=== PATIENT | male | born 1935 | race Caucasian/White ===

== ENCOUNTER 2017-03-27 18:04 | Emergency (ER) | payer MEDICARE, OTHER ==
[2017-03-27] MEDS ORDERED: Sodium Chloride 0.9% 10 ML Syringe FLUSH PRN (18:06)
[2017-03-27] MEDS ORDERED: Ketorolac 30 MG/ML SDV IVPUSH ONE (18:10)
--- NOTE | 2017-03-27 18:36 | EDM.PDOC ---
ED HPI GENERAL MEDICAL PROBLEM - General Stated Complaint: PAIN LEFT HIP AND LEG AREA Time Seen by Provider: 03/27/17 18:10 Source of Information: Reports: Patient, Family History Limitations: Reports: Physical Impairment - History of Present Illness INITIAL COMMENTS - FREE TEXT/NARRATIVE: 82 y.o.w.m with h/o B cell lymphoma, Brain Tumor (Typ?), came with family to the ed due to acute onset of pain at his LLQ of his abdomen. No trauma. Pt has a h/o diverticulitis. S/P right nephrectomy. No N/V/D. 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 BP 149/66 pulse 55 Temp 36.6 Pulse ox 99% on RA. Onset: Today Onset Date: 03/27/17 Onset Time: 16:00 Duration: Hour(s):, Getting Worse Location: Reports: Abdomen, Pelvis Quality: Reports: Ache, Burning, Dull, Pressure, Stabbing, Throbbing Severity: Severe Improves with: Reports: Rest Worsens with: Reports: Movement Context: Reports: Other (H/O diverticulitis, no trauma.) Associated Symptoms: Reports: No Other Symptoms left abdomen Pain Score (Numeric/FACES): 9 - Related Data Allergies Allergy/AdvReac Type Severity Reaction Status Date / Time avocado Allergy Diarrhea Verified 08/23/14 09:48 nifedipine [From Procardia] Allergy Hypertensio Verified 08/23/14 09:48 n Home Meds: Home Meds Levothyroxine 75 mcg PO DAILY 08/15/14 [History] Dexamethasone [Dexamethasone] 4 mg PO Q8HR 03/27/17 [History] Metoprolol Succinate [Toprol XL] 12.5 mg PO DAILY 03/27/17 [History] Social & Family History - Tobacco Use Smoking Status *Q: Never Smoker Second Hand Smoke Exposure: No - Alcohol Use Days Per Week of Alcohol Use: 0 - Recreational Drug Use Recreational Drug Use: No ED ROS GENERAL - Review of Systems Review Of Systems: See Below Constitutional: Reports: No Symptoms HEENT: Reports: No Symptoms Respiratory: Reports: No Symptoms Cardiovascular: Reports: No Symptoms Endocrine: Reports: No Symptoms GI/Abdominal: Reports: Abdominal Pain : Reports: No Symptoms Musculoskeletal: Reports: No Symptoms Skin: Reports: No Symptoms Neurological: Reports: No Symptoms Psychiatric: Reports: No Symptoms Hematologic/Lymphatic: Reports: No Symptoms Immunologic: Reports: No Symptoms ED EXAM, GI/ABD - Physical Exam Exam: See Below Exam Limited By: Physical Impairment General Appearance: Alert, WD/WN, Moderate Distress Eyes: Bilateral: Normal Appearance Ears: Normal External Exam Nose: Normal Inspection Throat/Mouth: Normal Inspection Head: Atraumatic, Normocephalic Neck: Normal Inspection, Supple, Non-Tender Respiratory/Chest: No Respiratory Distress, Lungs Clear (poor insp effort) Cardiovascular: Normal Peripheral Pulses, Regular Rate, Rhythm GI/Abdominal Exam: Distended, Guarding, Rigid, Tender, Abnormal Bowel Sounds (Male) Exam: No Hernia Rectal (Males) Exam: Deferred Back Exam: Normal Inspection, Full Range of Motion Extremities: Normal Inspection, Normal Range of Motion, Non-Tender, No Pedal Edema, Normal Capillary Refill Neurological: Alert, Oriented, CN II-XII Intact, Normal Cognition, Abnormal Gait (due to abd. pain) Psychiatric: Normal Affect, Normal Mood Skin Exam: Warm, Dry, Intact, Normal Color, No Rash Lymphatic: No Adenopathy Course - Vital Signs Text/Narrative:: 82 y.o.w.m with h/o B cell lymphoma, Brain Tumor (Typ?), came with family to the ed due to acute onset of pain at his LLQ of his abdomen. No trauma. Pt has a h/o diverticulitis. S/P right nephrectomy. No N/V/D. 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 BP 149/66 pulse 55 Temp 36.6 Pulse ox 99% on RA. PE: WNWD W M with an acute abdomen. Labs: WBC 25.8 K Lactic acid 2.3 Imaging: Perforated viscus, Diverticulitis Neoplasma? Impression: Brain Tumor, B cell lymphoma. S/P right Nephrectomy due to Cancer. Perforated colon/viscus DDX: Abscess, neoplasma, diverticulitis Tx: Toradol, Zosyn, Flagyl, Dilaudid, NS Reexam: Stabilized/pain improved BP 105/67 pulse 51 (on betablockers) temp 36.1 9.38 pm Consultation: Dr. Gordillo, Surgeon: [facility] to [place] 9.42 pm Consultation: Dr. Ribera, Surgeon, [facility]: Accepted for further care Plan: Transfer to [place] by EMS. Family was informed and agreed for the transfer for further evaluation. Last Recorded V/S: Last Vital Signs Temp 36.1 C 03/27/17 18:10 Pulse 61 03/27/17 22:10 Resp 16 03/27/17 22:10 BP 103/79 03/27/17 22:10 Pulse Ox 99 03/27/17 22:10 - Orders/Labs/Meds Orders: Active Orders 24 hr Category Date Time Status Abdomen Pelvis w Cont [CT] Stat Exams 03/27/17 18:49 Taken CULTURE BLOOD [BC] Urgent Lab 03/27/17 18:40 Received CULTURE BLOOD [BC] Urgent Lab 03/27/17 18:45 Received Blood Culture x2 Reflex Set [OM.PC] Urgent Oth 03/27/17 18:33 Ordered Peripheral IV Insertion Adult [OM.PC] Routine Oth 03/27/17 18:06 Ordered Labs: Laboratory Tests 03/27/17 03/27/17 03/27/17 Range/Units 18:20 18:20 18:20 WBC 25.8 H (4.5-12.0) X10-3/uL RBC 6.28 H (4.30-5.75) x10(6)uL Hgb 16.9 H (11.5-15.5) g/dL Hct 52.5 H (30.0-51.3) % MCV 83.6 (80-96) fL MCH 26.9 L (27.7-33.6) pg MCHC 32.2 (32.2-35.4) g/dL RDW 14.3 (11.5-15.5) % Plt Count 235 (125-369) X10(3)uL MPV 9.8 (7.4-10.4) fL Add Manual Diff Yes Neutrophils % (Manual) 82 (46-82) % Band Neutrophils % 5 (0-6) % Lymphocytes % (Manual) 10 L (13-37) % Monocytes % (Manual) 2 L (4-12) % Basophils % (Manual) 1 (0-2) % PT 11.2 H (8.7-11.1) INR 1.11 (0.89-1.13) Sodium 137 (135-145) mmol/L Potassium 4.3 (3.5-5.3) mmol/L Chloride 100 (100-110) mmol/L Carbon Dioxide 31 (21-32) mmol/L BUN 31 H (7-18) mg/dL Creatinine 1.5 H (0.70-1.30) mg/dL Est Cr Clr Drug Dosing TNP Estimated GFR (MDRD) 45 L (>60) BUN/Creatinine Ratio 20.7 H (9-20) Glucose 166 H (80-116) mg/dL Lactic Acid (0.4-2.2) mmol/L Calcium 8.3 L (8.6-10.2) mg/dL Total Bilirubin (0.1-1.3) mg/dL Direct Bilirubin (0.10-0.20) mg/dL AST (5-25) IU/L ALT (12-36) U/L Alkaline Phosphatase (56-112) IU/L NT-Pro-B Natriuret Pep (<=450) pg/mL Total Protein (6.0-8.0) g/dL Albumin (3.2-4.6) g/dL Amylase (25-115) U/L Urine Color (YELLOW) Urine Appearance (CLEAR) Urine pH (5.0-6.5) Ur Specific [place] (1.010-1.025) Urine Protein (NEGATIVE) mg/dL Urine Glucose (UA) (NEGATIVE) mg/dL Urine Ketones (NEGATIVE) mg/dL Urine Occult Blood (NEGATIVE) Urine Nitrite (NEGATIVE) Urine Bilirubin (NEGATIVE) Urine Urobilinogen (NEGATIVE) mg/dL Ur Leukocyte Esterase (NEGATIVE) Urine RBC (0) Urine WBC (0) Ur Squamous Epith Cells (NS,R,O) Urine Bacteria (NS) 03/27/17 03/27/17 03/27/17 Range/Units 18:20 18:20 18:20 WBC (4.5-12.0) X10-3/uL RBC (4.30-5.75) x10(6)uL Hgb (11.5-15.5) g/dL Hct (30.0-51.3) % MCV (80-96) fL MCH (27.7-33.6) pg MCHC (32.2-35.4) g/dL RDW (11.5-15.5) % Plt Count (125-369) X10(3)uL MPV (7.4-10.4) fL Add Manual Diff Neutrophils % (Manual) (46-82) % Band Neutrophils % (0-6) % Lymphocytes % (Manual) (13-37) % Monocytes % (Manual) (4-12) % Basophils % (Manual) (0-2) % PT (8.7-11.1) INR (0.89-1.13) Sodium (135-145) mmol/L Potassium (3.5-5.3) mmol/L Chloride (100-110) mmol/L Carbon Dioxide (21-32) mmol/L BUN (7-18) mg/dL Creatinine (0.70-1.30) mg/dL Est Cr Clr Drug Dosing Estimated GFR (MDRD) (>60) BUN/Creatinine Ratio (9-20) Glucose (80-116) mg/dL Lactic Acid 2.3 H (0.4-2.2) mmol/L Calcium (8.6-10.2) mg/dL Total Bilirubin 0.5 (0.1-1.3) mg/dL Direct Bilirubin 0.12 (0.10-0.20) mg/dL AST 21 (5-25) IU/L ALT 66 H (12-36) U/L Alkaline Phosphatase 60 (56-112) IU/L NT-Pro-B Natriuret Pep 830 H (<=450) pg/mL Total Protein 6.7 (6.0-8.0) g/dL Albumin 3.1 L (3.2-4.6) g/dL Amylase 92 (25-115) U/L Urine Color (YELLOW) Urine Appearance (CLEAR) Urine pH (5.0-6.5) Ur Specific [place] (1.010-1.025) Urine Protein (NEGATIVE) mg/dL Urine Glucose (UA) (NEGATIVE) mg/dL Urine Ketones (NEGATIVE) mg/dL Urine Occult Blood (NEGATIVE) Urine Nitrite (NEGATIVE) Urine Bilirubin (NEGATIVE) Urine Urobilinogen (NEGATIVE) mg/dL Ur Leukocyte Esterase (NEGATIVE) Urine RBC (0) Urine WBC (0) Ur Squamous Epith Cells (NS,R,O) Urine Bacteria (NS) 03/27/17 Range/Units 19:00 WBC (4.5-12.0) X10-3/uL RBC (4.30-5.75) x10(6)uL Hgb (11.5-15.5) g/dL Hct (30.0-51.3) % MCV (80-96) fL MCH (27.7-33.6) pg MCHC (32.2-35.4) g/dL RDW (11.5-15.5) % Plt Count (125-369) X10(3)uL MPV (7.4-10.4) fL Add Manual Diff Neutrophils % (Manual) (46-82) % Band Neutrophils % (0-6) % Lymphocytes % (Manual) (13-37) % Monocytes % (Manual) (4-12) % Basophils % (Manual) (0-2) % PT (8.7-11.1) INR (0.89-1.13) Sodium (135-145) mmol/L Potassium (3.5-5.3) mmol/L Chloride (100-110) mmol/L Carbon Dioxide (21-32) mmol/L BUN (7-18) mg/dL Creatinine (0.70-1.30) mg/dL Est Cr Clr Drug Dosing Estimated GFR (MDRD) (>60) BUN/Creatinine Ratio (9-20) Glucose (80-116) mg/dL Lactic Acid (0.4-2.2) mmol/L Calcium (8.6-10.2) mg/dL Total Bilirubin (0.1-1.3) mg/dL Direct Bilirubin (0.10-0.20) mg/dL AST (5-25) IU/L ALT (12-36) U/L Alkaline Phosphatase (56-112) IU/L NT-Pro-B Natriuret Pep (<=450) pg/mL Total Protein (6.0-8.0) g/dL Albumin (3.2-4.6) g/dL Amylase (25-115) U/L Urine Color Yellow (YELLOW) Urine Appearance Clear (CLEAR) Urine pH 7.0 H (5.0-6.5) Ur Specific [place] 1.015 (1.010-1.025) Urine Protein Negative (NEGATIVE) mg/dL Urine Glucose (UA) 250 H (NEGATIVE) mg/dL Urine Ketones Negative (NEGATIVE) mg/dL Urine Occult Blood Negative (NEGATIVE) Urine Nitrite Negative (NEGATIVE) Urine Bilirubin Negative (NEGATIVE) Urine Urobilinogen 1 H (NEGATIVE) mg/dL Ur Leukocyte Esterase Negative (NEGATIVE) Urine RBC Not seen (0) Urine WBC 0-5 (0) Ur Squamous Epith Cells Few H (NS,R,O) Urine Bacteria Few H (NS) Meds: Medications Discontinued Medications Generic Name Dose Route Start Last Admin Trade Name Freq PRN Reason Stop Dose Admin Diatrizoate Meglum/Diatrizoate Sod 30 ml 03/27/17 20:08 03/27/17 20:12 Gastrografin 37% PO 03/27/17 20:09 30 ml . DIRECTED ONE Administration Hydromorphone HCl 0.5 mg 03/27/17 20:43 03/27/17 20:50 Dilaudid IVPUSH 03/27/17 20:44 0.5 mg ONETIME STA Administration Sodium Chloride 1,000 mls @ 125 mls/hr 03/27/17 18:45 03/27/17 19:00 Normal Saline IV 125 mls/hr ASDIRECTED MICHAEL Administration Piperacillin Sod/Tazobactam 50 mls @ 100 mls/hr 03/27/17 20:44 03/27/17 21:01 Sod 3.375 gm/ Sodium Chloride IV 03/27/17 21:13 100 mls/hr ONETIME STA Administration Metronidazole 500 mg/ Premix 100 mls @ 100 mls/hr 03/27/17 20:59 03/27/17 21: 27 IV 03/27/17 21:58 100 mls/hr ONETIME ONE Administration Iopamidol 75 ml 03/27/17 19:21 03/27/17 20:06 Isovue-370 (76%) IV 03/27/17 19:22 75 ml ONETIME ONE Administration Ketorolac Tromethamine 15 mg 03/27/17 18:10 03/27/17 18:17 Toradol IVPUSH 03/27/17 18:11 15 mg ONETIME ONE Administration Sodium Chloride 10 ml 03/27/17 18:06 03/27/17 18:10 Saline Flush FLUSH 10 ml ASDIRECTED PRN Administration Keep Vein Open Departure - Departure Time of Disposition: 21:57 Disposition: DC/Tfer to Critical Access 66 Condition: Fair Clinical Impression: Perforated abdominal viscus Diverticulitis large intestine Qualifiers: Diverticulitis bleeding: without bleeding Diverticulitis complication: with perforation Qualified Code(s): K57.20 - Diverticulitis of large intestine with perforation and abscess without bleeding - Discharge Information Referrals: Yifan Ruiz MD [Primary Care Provider] - Forms: ED Department Discharge - My Orders Last 24 Hours: My Active Orders 03/27/17 18:06 Peripheral IV Insertion Adult [OM.PC] Routine 03/27/17 18:33 Blood Culture x2 Reflex Set [OM.PC] Urgent 03/27/17 18:40 CULTURE BLOOD [BC] Urgent 03/27/17 18:45 CULTURE BLOOD [BC] Urgent 03/27/17 18:49 Abdomen Pelvis w Cont [CT] Stat - Assessment/Plan Last 24 Hours: My Active Orders 03/27/17 18:06 Peripheral IV Insertion Adult [OM.PC] Routine 03/27/17 18:33 Blood Culture x2 Reflex Set [OM.PC] Urgent 03/27/17 18:40 CULTURE BLOOD [BC] Urgent 03/27/17 18:45 CULTURE BLOOD [BC] Urgent 03/27/17 18:49 Abdomen Pelvis w Cont [CT] Stat
[2017-03-27] MEDS ORDERED: Sodium Chloride 0.9% 1,000 ML IV SCH (18:45)
[2017-03-27] MEDS ORDERED: Iopamidol 755 Mg/ML 75 ML Bottle IV ONE (19:21)
[2017-03-27] MEDS ORDERED: Diatrizoate Meglumine/Diatrizoate Sodium 37% 30 ML Bottle PO ONE (20:08)
[2017-03-27] MEDS ORDERED: HYDROmorphone 2 MG/ML SDV IVPUSH STA (20:43)
[2017-03-27] MEDS ORDERED: Piperacillin/Tazobactam 3.375 GM in Sodium Chloride 0.9% 50 ML IV STA (20:44)
[2017-03-27] MEDS ORDERED: metroNIDAZOLE/Normal Saline 500 MG in Premix Bag 1 BAG IV ONE (20:59)
[2017-03-27 22:35] VITALS: BP 103/79
== END 2017-03-27 22:20 | disposition critical access hospital (66) ==
LOC: FB.ED 18:04
DX: K57.20 Diverticulitis of large intestine with perforation and abscess without bleeding (principal); C71.9 Malignant neoplasm of brain, unspecified; C85.10 Unspecified B-cell lymphoma, unspecified site; Z90.5 Acquired absence of kidney; Z79.899 Other long term (current) drug therapy; Z88.8 Allergy status to other drugs, medicaments and biological substances; Z91.018 Allergy to other foods
CPT/HCPCS: 36415; 74177; 80048; 80076; 81001; 82150; 83605; 83880; 85025; 85610; 87040; 96361; 96365; 96367; 96375; 99285; A9270; J1170; J1885; J2543; J7040; J7050; Q9967; 99284

== ENCOUNTER 2017-04-06 11:34 | Inpatient (IN) | payer MEDICARE, OTHER ==
[2017-04-06] MEDS ORDERED: Acetaminophen/oxyCODONE 325-5 MG Tab PO PRN (14:44)
[2017-04-06] MEDS ORDERED: Menthol/Methyl Salicylate 85 GM Tube TOP PRN (14:46)
[2017-04-06] MEDS ORDERED: Polyvinyl Alcohol 1.4% Ophth Soln 15 ML Bottle EYEBOTH PRN (14:46)
[2017-04-06] MEDS ORDERED: Benzocaine/Cetylpyridinium/Menthol Lozenge MUCMEM PRN (14:46)
[2017-04-06] MEDS ORDERED: guaiFENesin 100 MG/5 ML Soln 5 ML UD Cup PO PRN (14:46)
[2017-04-06] MEDS ORDERED: Sodium Chloride 0.65% Nasal Spray 45 ML Bottle NAS PRN (14:46)
[2017-04-06] MEDS ORDERED: Docusate Sodium 100 MG Cap PO PRN (14:46)
[2017-04-06] MEDS ORDERED: Zolpidem 5 MG Tab PO PRN (14:46)
--- NOTE | 2017-04-06 14:59 | PCM.HP ---
H&P History of Present Illness - General Date of Service: 04/06/17 Admit Problem/Dx: Admission Diagnosis/Problem Admission Diagnosis/Problem Wound Source of Information: Patient, Old Records History Limitations: Reports: No Limitations - History of Present Illness Initial Comments - Free Text/Narative: Patient is a pleasant 82-year-old male who comes to us for swing bed status after he was admitted to the surgical team as [facility] under the care of Dr. Nhung michael M.D. on 03/27/2017 at the time he was experiencing severe left lower quadrant pain. Early in the morning on 03/28/2017 he underwent exploratory laparotomy and was found to have perforated left descending colon secondary to acute diverticulitis requiring left hemicolectomy, colostomy creation, Baltazar procedure, mobilization splenic flexure. Other complicating factors include known lymphoma to the brain recently diagnosed being seen at the [facility] and had one radiation dose treatment on 04/01/2017. He is being tapered down from his dexamethasone which he is on to prevent swelling of the brain. This will be carried out over a 3 week course. Postoperatively he now has a new left upper quadrant colostomy along with vertical midline abdominal wound incision closing by secondary intention. He is requiring wound care management, continued ostomy teaching, physical therapy occupational therapy for strengthening secondary to generalized deconditioning and poor nutrition status procedure. He is optimistic and does plan to go home once medically and physically able. His daughter and are in the room with him as I interview. They at this time have no concerns. He would like to drink more water. He denies headache, vision change, neck pain shoulder jaw chest or back pain. No cough or wheezing. No shortness of breath. Only minimal abdominal discomfort and no pain with wound cares. His ostomy is working well. He does feel as though he has some gas in the abdomen but this is nonpainful. He has no difficulty urinating. He does note some lower extremity edema which is just since his procedure. Otherwise no history of it in past. He denies any leg pain at rest or with activity. Currently using a walker for ambulation. His primary care physician is Dr. Joseph M.D. at [facility] and [place]. - Related Data Allergies/Adverse Reactions: Allergies Allergy/AdvReac Type Severity Reaction Status Date / Time avocado Allergy Diarrhea Verified 08/23/14 09:48 nifedipine [From Procardia] Allergy Hypertensio Verified 08/23/14 09:48 n Home Medications: Home Meds Levothyroxine 75 mcg PO DAILY@0600 08/15/14 [History] Dexamethasone [Dexamethasone] 4 mg PO BID 03/27/17 [History] Metoprolol Succinate [Toprol XL] 12.5 mg PO DAILY 03/27/17 [History] Dronabinol [Marinol] 2.5 mg PO BIDAC 04/06/17 [History] Famotidine [Acid Daycare Provider] 10 mg PO BID 04/06/17 [History] oxyCODONE HCl/Acetaminophen [oxyCODONE-Acetaminophen 5-325] 1 tab PO Q4H PRN 01/12 [History] Past Medical History Other HEENT History: Dentures Cardiovascular History: Reports: Hypertension, Other (See Below) Other Cardiovascular History: Diastolic heart murmur Respiratory History: Reports: Intubation, Previous (2018 for colostomy-no complications. Also for removal of Right kidney several years ago secondary to cancer-no complication.) Gastrointestinal History: Reports: Cholelithiasis Other Gastrointestinal History: Colostomy Genitourinary History: Reports: Chronic Renal Insuffiency. Denies: Dialysis Other Genitourinary History: Only has 1 kidney is functioning at roughly 45%. No history of needing dialysis her diuretics. Musculoskeletal History: Reports: None Neurological History: Reports: Other (See Below) Psychiatric History: Reports: None Endocrine/Metabolic History: Reports: Hypothyroidism Hematologic History: Denies: Anesthesia Reaction, Bleeding Disorder Immunologic History: Reports: None Oncologic (Cancer) History: Reports: Basal Cell Carcinoma, Lymphoma, Renal, Other (See Below) Other Oncologic History: recent diagnose of brain tumor-lymphoma Dermatologic History: Reports: None - Infectious Disease History Infectious Disease History: Reports: None - Past Surgical History Head Surgeries/Procedures: Reports: None Cardiovascular Surgical History: Reports: None Respiratory Surgical History: Reports: None GI Surgical History: Reports: Colon ( left hemicolectomy), Colostomy Male Surgical History: Reports: Nephrectomy Endocrine Surgical History: Reports: None Neurological Surgical History: Reports: None Musculoskeletal Surgical History: Reports: None Oncologic Surgical History: Reports: Other (See Below) (nephrectomy) Dermatological Surgical History: Reports: None Social & Family History - Tobacco Use Smoking Status *Q: Never Smoker Second Hand Smoke Exposure: No - Alcohol Use Days Per Week of Alcohol Use: 0 - Recreational Drug Use Recreational Drug Use: No - Living Situation & Occupation Living situation: Reports: , with Spouse Occupation: Retired (Lives independently in his own home.) H&P Review of Systems - Review of Systems: Review Of Systems: ROS reveals no pertinent complaints other than HPI. Exam - Exam Exam: See Below - Exam General: Alert, Oriented, Cooperative. No: Mild Distress HEENT: PERRLA, Conjunctiva Clear, Mucosa Moist & [place], Posterior Pharynx Clear. No: Scleral Icterus Neck: Supple, Trachea Midline. No: Lymphadenopathy, JVD, Thyromegaly Lungs: Clear to Auscultation, Normal Respiratory Effort Cardiovascular: Regular Rate, Regular Rhythm, Normal S1, Normal S2, Diastolic Murmur (2/) GI/Abdominal Exam: Soft, Distended, Tender (As expected along the midline incision.), Other (He has a vertical midline open surgical wound substernal to suprapubic. Healthy-appearing. Closing by secondary intent with wet to dry dressings using Kerlix daily. He also has a healthy-appearing ostomy to the left mid quadrant of the abdomen pink with bag containing liquid round stools and air. No evidence of skin breakdown or leakage. Nontender to palpation along dressing.). No: Guarding, Rigid, Rebound (Male) Exam: No: Suprapubic Fullness Rectal (Males) Exam: Deferred Back Exam: Normal Inspection Extremities: Other (He has trace to 1+ bilateral pedal edema up to the mid perrin. Symmetrical. No erythema or warmth. Negative Homans. Sensation and perfusion intact.) Skin: Wound Neurological: Strength Equal Bilateral, Normal Speech. No: Focal Deficit Neuro Extensive - Mental Status: Oriented x3, Normal Cognition, Memory Intact Psychiatric: Normal Affect, Normal Mood *Q Meaningful Use (ADM) - VTE *Q VTE Criteria *Q: - Stroke *Q Stroke Criteria *Q: - AMI *Q AMI Criteria *Q: - Problem List (1) Delayed physical recovery SNOMED Code(s): 617532443 ICD Code: [id number] - Status: Acute Current Visit: Yes (2) Encounter for surgical wound dressing change SNOMED Code(s): 004370344 ICD Code: Z48.01 - ENCOUNTER FOR CHANGE OR REMOVAL OF SURGICAL WOUND DRESSING Status: Acute Current Visit: Yes (3) S/P colectomy SNOMED Code(s): 960140144, 987784569 ICD Code: Z90.49 - ACQUIRED ABSENCE OF OTHER SPECIFIED PARTS OF DIGESTIVE TRACT Status: Acute Current Visit: Yes (4) Colostomy in place SNOMED Code(s): 014748362 ICD Code: Z93.3 - COLOSTOMY STATUS Status: Acute Current Visit: Yes (5) Status post Baltazar procedure SNOMED Code(s): 431074282 ICD Code: Z93.3 - COLOSTOMY STATUS Status: Acute Current Visit: Yes (6) Single kidney SNOMED Code(s): 731894456 ICD Code: Z90.5 - ACQUIRED ABSENCE OF KIDNEY Status: Chronic Current Visit: Yes (7) Essential hypertension SNOMED Code(s): 20952048 ICD Code: I10 - ESSENTIAL (PRIMARY) HYPERTENSION Status: Chronic Current Visit: Yes (8) Hypothyroidism (acquired) SNOMED Code(s): 551191788 ICD Code: E03.9 - HYPOTHYROIDISM, UNSPECIFIED Status: Chronic Current Visit: Yes (9) WOOL CLEANER lymphoma SNOMED Code(s): 195120954 ICD Code: C85.89 - OTH TYPES OF NON-HODG LYMPH, EXTRNOD AND SOLID ORGAN SITES Status: Acute Current Visit: Yes Problem Details: Brain-diagnosed February 2017 (10) Dyspepsia due to dysmotility SNOMED Code(s): 4066408 ICD Code: K30 - FUNCTIONAL DYSPEPSIA Status: Acute Current Visit: Yes Problem List Initiated/Reviewed/Updated: Yes Orders Last 24hrs: Active Orders 24 hr Category Date Time Status Admission Status [Patient Status] [ADT] Routine ADT 04/06/17 13:00 Active Activity as Tolerated [RC] .Routine Care 04/06/17 14:08 Active Ambulate [RC] ASDIRECTED Care 04/06/17 14:08 Active Height and Weight [RC] WEEKLY Care 04/06/17 14:46 Ordered May Shower [RC] ASDIRECTED Care 04/06/17 14:08 Active Notify Provider Vital Signs [RC] ASDIRECTED Care 04/06/17 14:46 Ordered Oxygen Therapy [RC] PRN Care 04/06/17 14:46 Ordered VTE/DVT Education [RC] Per Unit Routine Care 04/06/17 14:46 Ordered Vital Signs [RC] PER UNIT ROUTINE Care 04/06/17 14:46 Ordered Wound Care [RC] DAILY Care 04/06/17 16:00 Active Consult to Test Driver [CONS] Routine Cons 04/06/17 14:46 Ordered OT Evaluation and Treatment [CONS] Routine Cons 04/06/17 14:08 Active PT Evaluation and Treatment [CONS] Routine Cons 04/06/17 14:08 Active Regular Diet [DIET] Diet 04/06/17 Dinner Active Acetaminophen/oxyCODONE [Percocet 325-5 MG] Med 04/06/17 14:44 Ordered 1 tab PO Q4H PRN Benzocaine/Cetylpyrd/Menthol [Cepacol Sore Throat] Med 04/06/17 14:46 Ordered 1 lozenge MUCMEM ASDIRECTED PRN Carboxymethylcellulose Sodium [Refresh Tears 0.5%] Med 04/06/17 14:46 Ordered 1 ml EYEBOTH ASDIRECTED PRN Dexamethasone Med 04/06/17 21:00 Ordered 4 mg PO BID Docusate Sodium [Colace] Med 04/06/17 14:46 Ordered 100 mg PO BID PRN Dronabinol [Marinol] Med 04/06/17 17:30 Ordered 2.5 mg PO BIDAC Famotidine [Pepcid] Med 04/06/17 21:00 Ordered 10 mg PO BID Levothyroxine Med 04/07/17 06:00 Ordered 75 mcg PO DAILY@0600 Menthol/Methyl Salicylate [Icy Hot Cream] Med 04/06/17 14:46 Ordered 85 gm TOP BID PRN Metoprolol Succinate [Toprol XL] Med 04/07/17 09:00 Ordered 12.5 mg PO DAILY Sodium Chloride 0.65% [Praesel Nasal [place]] Med 04/06/17 14:46 Ordered 1 ml STACIE BID PRN Zolpidem [Ambien] Med 04/06/17 14:46 Ordered 5 mg PO BEDTIME PRN guaiFENesin [Robitussin] Med 04/06/17 14:46 Ordered 100 mg PO Q4H PRN Lifting Restrictions [OM.PC] Routine Oth 04/06/17 14:08 Ordered Patient May [OM.PC] Click to Edit Oth 04/06/17 14:46 Ordered Resuscitation Status Routine Resus Stat 04/06/17 14:08 Ordered Medication Orders Artificial Tears (Refresh Tears 0.5%) 1 ml EYEBOTH ASDIRECTED PRN PRN Reason: Dry Eyes Benzocaine/Menthol (Cepacol Sore Throat) 1 lozenge MUCMEM ASDIRECTED PRN PRN Reason: Sore Throat Dexamethasone (Dexamethasone) 4 mg PO BID MICHAEL Docusate Sodium (Colace) 100 mg PO BID PRN PRN Reason: Constipation Famotidine (Pepcid) 10 mg PO BID MICHAEL Guaifenesin (Robitussin) 100 mg PO Q4H PRN PRN Reason: Cough Levothyroxine Sodium (Levothyroxine) 75 mcg PO DAILY@0600 MICHAEL Methyl Salicylate (Icy Hot Cream) 85 gm TOP BID PRN PRN Reason: Discomfort Metoprolol Succinate (Toprol Xl) 12.5 mg PO DAILY [facility] Non-Formulary Medication (Dronabinol [Marinol]) 2.5 mg PO BIDAC MICHAEL Oxycodone/Acetaminophen (Percocet 325-5 Mg) 1 tab PO Q4H PRN PRN Reason: Pain (moderate 4-6) Sodium Chloride (Praesel Nasal [place]) 1 ml STACIE BID PRN PRN Reason: Nasal Congestion Zolpidem Tartrate (Ambien) 5 mg PO BEDTIME PRN PRN Reason: Sleep Assessment/Plan Comment:: Patient is appropriate for swing bed for continued PT OT due to deconditioning, half-way for wound care management, and ostomy cares along with teaching the patient and on how to continue this month able to discharge to home. We 'll continue to work on nutrition and any additional medical needs that may be required. All family are in agreement with the above plan of care.
[2017-04-06] MEDS: Dronabinol 2.5 MG Cap PO SCH (17:38)
[2017-04-06] MEDS: Dexamethasone 4 MG Tab PO SCH (20:40)
[2017-04-06] MEDS: Famotidine 10 MG Tab PO SCH (20:41)
[2017-04-06] MEDS ORDERED: Dexamethasone 4 MG Tab PO SCH (21:00)
[2017-04-07] MEDS: Levothyroxine 75 MCG Tab PO SCH (06:41)
[2017-04-07] MEDS: Dronabinol 2.5 MG Cap PO SCH ×2 (07:50→17:18)
[2017-04-07] MEDS: Metoprolol Succinate 25 MG Tab.ER PO SCH (09:07)
[2017-04-07] MEDS: Dexamethasone 4 MG Tab PO SCH ×2 (09:09→20:35)
[2017-04-07] MEDS: Famotidine 10 MG Tab PO SCH ×2 (09:09→20:34)
[2017-04-08] MEDS: Levothyroxine 75 MCG Tab PO SCH (06:03)
[2017-04-08] MEDS: Dronabinol 2.5 MG Cap PO SCH ×2 (07:18→17:22)
[2017-04-08] MEDS: Metoprolol Succinate 25 MG Tab.ER PO SCH (11:18)
[2017-04-08] MEDS: Famotidine 10 MG Tab PO SCH ×2 (11:18→20:40)
[2017-04-08] MEDS: Dexamethasone 4 MG Tab PO SCH ×2 (11:19→20:40)
--- NOTE | 2017-04-08 15:24 | PCM.PN ---
- General Info Date of Service: 04/08/17 Admission Dx/Problem (Free Text): Patient is an 82-year-old gentleman currently on swing bed day #3 admitted on 12/2017 after being hospitalized in [place] on 03/28/2017 day of surgery for left hemicolectomy secondary to perforation of the left colon. He was hospitalized in [place] for 10 days for IV antibiotic therapy and postoperative care. He is doing very well today. He's eating well. Good ostomy output. He was discharged from physical therapy and occupational therapy because he is meeting goal. He is still working with wound care and learning ostomy care. At the case conference today the plan is for him to likely discharge on the next week, Tuesday. 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 This was treated and he had recurrence early part of 2016 with a left posterior leg lesion. The leg lesion had initially been treated as a Lyme's erythema migrans and then thought to be perhaps a cellulitis. Ultimately was found to be a recurrent lymphoma. In February 2017 he started to develop vision problems with double vision and headaches and was found to have brain metastases with a lesion in the brain. This was treated with stereotactic radiation, 1 treatment and went very well. The patient was started on dexamethasone and had almost complete resolution of his symptoms. Unfortunately, he developed a perforated left colon with a peritonitis and ultimately required emergency surgery for this as above. Past medical history also includes: #1 GERD #2 TIA in the past #3 hyperlipidemia not treated due to age. #4 hypertension. #5 hypothyroidism. He is a nonsmoker, rare alcohol user and lives with his at home. Functional Status: Reports: Pain Controlled, Tolerating Diet, Ambulating - Patient Data Vitals - Most Recent: Last Vital Signs Temp 36.8 C 04/08/17 07:25 Pulse 65 04/08/17 11:18 Resp 18 04/08/17 07:25 BP 113/58 L 04/08/17 11:18 Pulse Ox 99 04/08/17 07:25 Weight - Most Recent: 64.41 kg I&O - Last 24 Hours: Intake & Output 04/08/17 04/08/17 04/08/17 06:59 14:59 22:59 Output Total 200 Balance -200 Med Orders - Current: Current Medications Artificial Tears (Liquitears 1.4% Ophth Soln) 0 ml EYEBOTH ASDIRECTED PRN PRN Reason: Dry Eyes Benzocaine/Menthol (Cepacol Sore Throat) 1 lozenge MUCMEM ASDIRECTED PRN PRN Reason: Sore Throat Dexamethasone (Dexamethasone) 4 mg PO BID [facility] Stop: 04/13/17 21:01 Last Admin: 04/08/17 11:19 Dose: 4 mg Dexamethasone (Dexamethasone) 4 mg PO DAILY [facility] Stop: 04/21/17 09:01 Dexamethasone (Dexamethasone) 2 mg PO DAILY [facility] Stop: 04/29/17 09:01 Docusate Sodium (Colace) 100 mg PO BID PRN PRN Reason: Constipation Dronabinol (Marinol) 2.5 mg PO BIDAC [facility] Last Admin: 04/08/17 07:18 Dose: 2.5 mg Famotidine (Pepcid) 10 mg PO BID [facility] Last Admin: 04/08/17 11:18 Dose: 10 mg Guaifenesin (Robitussin) 100 mg PO Q4H PRN PRN Reason: Cough Levothyroxine Sodium (Levothyroxine) 75 mcg PO DAILY@0600 [facility] Last Admin: 04/08/17 06:03 Dose: 75 mcg Methyl Salicylate (Icy Hot Cream) 0 gm TOP BID PRN PRN Reason: Discomfort Metoprolol Succinate (Toprol Xl) 12.5 mg PO DAILY [facility] Last Admin: 04/08/17 11:18 Dose: 12.5 mg Oxycodone/Acetaminophen (Percocet 325-5 Mg) 1 tab PO Q4H PRN PRN Reason: Pain (moderate 4-6) Sodium Chloride ([place] Nasal [place]) 0 ml STACIE BID PRN PRN Reason: Nasal Congestion Zolpidem Tartrate (Ambien) 5 mg PO BEDTIME PRN PRN Reason: Sleep Discontinued Medications Dexamethasone (Dexamethasone) 4 mg PO BID [facility] - Exam General: Alert, Oriented, Cooperative, No Acute Distress HEENT: Pupils Equal, Pupils Reactive Neck: Supple Lungs: Clear to Auscultation, Normal Respiratory Effort Cardiovascular: Regular Rate, Regular Rhythm, No Murmurs GI/Abdominal Exam: Normal Bowel Sounds, Soft (Large ventral incisional site dressed with no surrounding redness.) Extremities: Normal Inspection, No Pedal Edema Skin: Warm, Dry Wound/Incisions: Healing Well Psy/Mental Status: Alert, Normal Affect, Normal Mood - Problem List & Annotations (1) Delayed physical recovery SNOMED Code(s): 474897809 Code(s): FZS4189 - Status: Acute Current Visit: Yes Annotation/Comment :: Patient making good progress. We'll continue to ambulate in the hallway and work with nursing staff for teaching on wound care and ostomy care. (2) Colostomy in place SNOMED Code(s): 005436617 Code(s): Z93.3 - COLOSTOMY STATUS Status: Acute Current Visit: Yes Annotation/Comment:: Output is good without to much fluid loss. Now taking oral intake. Continue to monitor. (3) SALESPERSON SHOES lymphoma SNOMED Code(s): 276913688 Code(s): C85.89 - OTH TYPES OF NON-HODG LYMPH, EXTRNOD AND SOLID ORGAN SITES Status: Acute Current Visit: Yes Annotation/Comment:: Patient has an appointment in April with radiation oncology. Will continue to follow as an outpatient. Currently tapering dexamethasone. All neurologic symptoms have resolved. (4) S/P colectomy SNOMED Code(s): 165019133, 529432465 Code(s): Z90.49 - ACQUIRED ABSENCE OF OTHER SPECIFIED PARTS OF DIGESTIVE TRACT Status: Acute Current Visit: Yes Annotation/Comment:: See above. Discussed at length with patient and , long-term plan to reconnect the bowel once inflammation has resolved and patient is doing well. They can visit more with their surgeon about this at the follow-up visit. (5) Essential hypertension SNOMED Code(s): 57286256 Code(s): I10 - ESSENTIAL (PRIMARY) HYPERTENSION Status: Chronic Current Visit: Yes Annotation/Comment:: Currently well-controlled. Monitor. - Problem List Review Problem List Initiated/Reviewed/Updated: Yes - My Orders Last 24 Hours: My Active Orders 04/09/17 05:11 CBC WITH AUTO DIFF [HEME] AM COMPREHENSIVE METABOLIC PN,CMP [CHEM] AM - Plan Plan:: Patient currently doing well on swing bed status. Anticipated date of discharge would be next Tuesday the .
[2017-04-09] MEDS: Levothyroxine 75 MCG Tab PO SCH (06:35)
[2017-04-09] MEDS: Metoprolol Succinate 25 MG Tab.ER PO SCH (08:41)
[2017-04-09] MEDS: Dronabinol 2.5 MG Cap PO SCH ×2 (08:41→18:02)
[2017-04-09] MEDS: Dexamethasone 4 MG Tab PO SCH ×2 (08:41→20:24)
[2017-04-09] MEDS: Famotidine 10 MG Tab PO SCH ×2 (08:42→20:24)
--- NOTE | 2017-04-09 08:46 | PCM.SN ---
- Free Text/Narrative Note: Labs reviewed with patient. Hgb 11.3, WBC normal but still shows left shift, likely secondary to steroid. Albumin significantly low at 2.0 with concomitant low calcium 7.4. Discussed eating high protein foods to replete nutritional status. Patient doing well clinically. Ambulating without difficulty, requested pass to go home for a few hours this afternoon, I am in agreement with this. Will recheck labs prior to discharge on Tuesday next week. Labs from d/c at [facility] were: 04/05 - WBC 12.2, Hgb 12.2, Plt 147. Na 133, Cr 0.78, BUN 23, Alb 2.5, Ca 7.3 with normal corrected calcium.
[2017-04-10] MEDS: Levothyroxine 75 MCG Tab PO SCH (06:08)
[2017-04-10] MEDS: Dronabinol 2.5 MG Cap PO SCH ×2 (07:21→16:59)
[2017-04-10] MEDS: Metoprolol Succinate 25 MG Tab.ER PO SCH (08:48)
[2017-04-10] MEDS: Dexamethasone 4 MG Tab PO SCH ×2 (08:48→20:21)
[2017-04-10] MEDS: Famotidine 10 MG Tab PO SCH ×2 (08:48→20:21)
[2017-04-11] MEDS: Levothyroxine 75 MCG Tab PO SCH (05:46)
[2017-04-11] MEDS: Dronabinol 2.5 MG Cap PO SCH ×2 (07:17→17:41)
--- NOTE | 2017-04-11 08:07 | PCM.PN ---
- General Info Date of Service: 04/11/17 Admission Dx/Problem (Free Text): Patient is an 82-year-old gentleman currently on swing bed day #6 admitted on 12/2017 after being hospitalized in [place] on 03/28/2017 day of surgery for left hemicolectomy secondary to perforation of the left colon. He was hospitalized in [place] for 10 days for IV antibiotic therapy and postoperative care. He is doing very well and has no concerns today. He requested a pass for over the weekend but did not use it because of the weather. Is anxiously anticipating discharge tomorrow. Has been doing all his own cares over the weekend. Ambulating well. 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 Denies chest pain, shortness of breath, nausea, vomiting. Has been eating well. Ostomy output has been fairly firm and once daily needing emptying. Appetite is good. Voiding well. My only concern is ongoing weight loss. The patient is down another 2 kg over the weekend. Functional Status: Reports: Pain Controlled, Tolerating Diet, Ambulating, Urinating - Patient Data Vitals - Most Recent: Last Vital Signs Temp 37.0 C 04/10/17 07:57 Pulse 58 L 04/10/17 08:48 Resp 18 04/10/17 07:57 BP 125/52 L 04/10/17 08:48 Pulse Ox 98 04/10/17 07:57 Weight - Most Recent: 62.732 kg Med Orders - Current: Current Medications Artificial Tears (Liquitears 1.4% Ophth Soln) 0 ml EYEBOTH ASDIRECTED PRN PRN Reason: Dry Eyes Benzocaine/Menthol (Cepacol Sore Throat) 1 lozenge MUCMEM ASDIRECTED PRN PRN Reason: Sore Throat Dexamethasone (Dexamethasone) 4 mg PO BID [facility] Stop: 04/13/17 21:01 Last Admin: 04/10/17 20:21 Dose: 4 mg Dexamethasone (Dexamethasone) 4 mg PO DAILY [facility] Stop: 04/21/17 09:01 Dexamethasone (Dexamethasone) 2 mg PO DAILY [facility] Stop: 04/29/17 09:01 Docusate Sodium (Colace) 100 mg PO BID PRN PRN Reason: Constipation [facility] Last Admin: 04/11/17 07:17 Dose: 2.5 mg Famotidine (Pepcid) 10 mg PO BID [facility] Last Admin: 04/10/17 20:21 Dose: 10 mg Guaifenesin (Robitussin) 100 mg PO Q4H PRN PRN Reason: Cough Levothyroxine Sodium (Levothyroxine) 75 mcg PO DAILY@0600 [facility] Last Admin: 04/11/17 05:46 Dose: 75 mcg Methyl Salicylate (Icy Hot Cream) 0 gm TOP BID PRN PRN Reason: Discomfort Metoprolol Succinate (Toprol Xl) 12.5 mg PO DAILY [facility] Last Admin: 04/10/17 08:48 Dose: 12.5 mg Oxycodone/Acetaminophen (Percocet 325-5 Mg) 1 tab PO Q4H PRN PRN Reason: Pain (moderate 4-6) Sodium Chloride ([place] Nasal [place]) 0 ml STACIE BID PRN PRN Reason: Nasal Congestion Zolpidem Tartrate (Ambien) 5 mg PO BEDTIME PRN PRN Reason: Sleep Discontinued Medications Dexamethasone (Dexamethasone) 4 mg PO BID [facility] - Exam General: Alert, Oriented HEENT: Pupils Equal, Pupils Reactive Neck: Supple Lungs: Clear to Auscultation, Normal Respiratory Effort Cardiovascular: Regular Rate, No Murmurs Extremities: Pedal Edema (Trace.) Skin: Warm, Dry Wound/Incisions: Healing Well (Wound is not examined by myself today.) Psy/Mental Status: Alert, Normal Affect, Normal Mood - Problem List & Annotations (1) Delayed physical recovery SNOMED Code(s): 018668235 Code(s): IDH1951 - Status: Acute Current Visit: Yes Annotation/Comment :: Patient making good progress. Ready for discharge tomorrow. (2) Colostomy in place SNOMED Code(s): 705035090 Code(s): Z93.3 - COLOSTOMY STATUS Status: Acute Current Visit: Yes Annotation/Comment:: Output is good without too much fluid loss. Taking oral intake. Continue to monitor. (3) ELEMENTARY ASSISTANT PRINCIPAL lymphoma SNOMED Code(s): 001471486 Code(s): C85.89 - OTH TYPES OF NON-HODG LYMPH, EXTRNOD AND SOLID ORGAN SITES Status: Acute Current Visit: Yes Annotation/Comment:: Patient has an appointment in April with radiation oncology. Will continue to follow as an outpatient. Currently tapering dexamethasone. All neurologic symptoms have resolved. (4) S/P colectomy SNOMED Code(s): 797080372, 432808831 Code(s): Z90.49 - ACQUIRED ABSENCE OF OTHER SPECIFIED PARTS OF DIGESTIVE TRACT Status: Acute Current Visit: Yes Annotation/Comment:: See above. Plan for re-anastomosis. (5) Essential hypertension SNOMED Code(s): 49498214 Code(s): I10 - ESSENTIAL (PRIMARY) HYPERTENSION Status: Chronic Current Visit: Yes Annotation/Comment:: Currently well-controlled. Monitor. (6) Weight loss SNOMED Code(s): 79410483 Code(s): R63.4 - ABNORMAL WEIGHT LOSS Status: Acute Current Visit: Yes Annotation/Comment:: We will recheck albumin and other blood work tomorrow. Patient has excellent by mouth intake with high protein foods. He has appropriate ostomy output. This may still be water weight from high IV fluid doses while hospitalized and septic. Continue to monitor. As patient is doing so well clinically, would not change the patient's diet at this time. He was overweight prior to this episode. - Problem List Review Problem List Initiated/Reviewed/Updated: Yes - My Orders Last 24 Hours: My Active Orders 04/12/17 05:11 CBC WITH AUTO DIFF [HEME] AM COMPREHENSIVE METABOLIC PN,CMP [CHEM] AM - Plan Plan:: Patient currently doing well on swing bed status. Anticipated date of discharge would be tomorrow Tuesday the .
[2017-04-11] MEDS: Metoprolol Succinate 25 MG Tab.ER PO SCH (09:37)
[2017-04-11] MEDS: Famotidine 10 MG Tab PO SCH ×2 (09:38→20:09)
[2017-04-11] MEDS: Dexamethasone 4 MG Tab PO SCH ×2 (09:38→20:09)
[2017-04-12] MEDS: Levothyroxine 75 MCG Tab PO SCH (05:36)
[2017-04-12] MEDS: Dronabinol 2.5 MG Cap PO SCH (07:50)
[2017-04-12] MEDS: Metoprolol Succinate 25 MG Tab.ER PO SCH (08:02)
[2017-04-12 08:03] VITALS: BP 113/65
[2017-04-12] MEDS: Famotidine 10 MG Tab PO SCH (08:03)
[2017-04-12] MEDS: Dexamethasone 4 MG Tab PO SCH (08:03)
--- NOTE | 2017-04-12 12:20 | PCM.DCSUM1 ---
Discharge Summary - Hospital Course Free Text/Narrative:: Date of admission: 04/06/17 Date of discharge: 04/12/17 Admission dx: Debility and weakness after bowel perforation with peritonitis and left hemicolectomy and colostomy. Discharge dx: Same. Consults: PT/OT Procedures: None HPI: Patient is an 82-year-old gentleman admitted on 04/06/2017 after being hospitalized in [place] on 03/28/2017 day of surgery for left hemicolectomy secondary to perforation of the left colon. He was hospitalized in [place] for 10 days for IV antibiotic therapy and postoperative care. 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 This was treated and he had recurrence early part of 2016 with a left posterior leg lesion. The leg lesion had initially been treated as a Lyme's erythema migrans and then thought to be perhaps a cellulitis. Ultimately was found to be a recurrent lymphoma. In February 2017 he started to develop vision problems with double vision and headaches and was found to have brain metastases with a lesion in the brain. This was treated with stereotactic radiation, 1 treatment and went very well. The patient was started on dexamethasone and had almost complete resolution of his symptoms. Unfortunately, he developed a perforated left colon with a peritonitis and ultimately required emergency surgery for this as above. Past medical history also includes: #1 GERD #2 TIA in the past #3 hyperlipidemia not treated due to age. #4 hypertension. #5 hypothyroidism. Hospital course: Patient did extremely well throughout his rehab stay. Was independent with cares at discharge. - Discharge Data Discharge Date: 04/12/17 Discharge Disposition: Home, Home Health Agency 06 Condition: Good - Discharge Diagnosis/Problem(s) (1) Delayed physical recovery SNOMED Code(s): 916107937 ICD Code: [id number] - Status: Acute Current Visit: Yes Problem Details: Patient is now doing all his own cares. He is ambulating without difficulty. He' s eating well. Ready for discharge today. (2) Colostomy in place SNOMED Code(s): 481098741 ICD Code: Z93.3 - COLOSTOMY STATUS Status: Acute Current Visit: Yes Problem Details: Patient doing his own ostomy cares. Output is good without fluid loss. Good by mouth intake. Ready for discharge. (3) PREFORMER IMPREGNATED FABRICS lymphoma SNOMED Code(s): 639421782 ICD Code: C85.89 - OTH TYPES OF NON-HODG LYMPH, EXTRNOD AND SOLID ORGAN SITES Status: Acute Current Visit: Yes Problem Details: Patient has an appointment in April with radiation oncology. Will continue to follow as an outpatient. Currently tapering dexamethasone. All neurologic symptoms have resolved. (4) S/P colectomy SNOMED Code(s): 000111686, 714697137 ICD Code: Z90.49 - ACQUIRED ABSENCE OF OTHER SPECIFIED PARTS OF DIGESTIVE TRACT Status: Acute Current Visit: Yes Problem Details: See above. Plan for re-anastomosis. (5) Essential hypertension SNOMED Code(s): 37381323 ICD Code: I10 - ESSENTIAL (PRIMARY) HYPERTENSION Status: Chronic Current Visit: Yes Problem Details: Currently well-controlled. Continue current medications. (6) Weight loss SNOMED Code(s): 66309110 ICD Code: R63.4 - ABNORMAL WEIGHT LOSS Status: Acute Current Visit: Yes Problem Details: Albumin is slowly increasing. Follow up as an outpatient with primary care provider in one week for recheck. Stressed lean proteins to continue to rebuild protein and promote wound healing. - Patient Summary/Data Consults: Consultations 04/06/17 14:08 OT Evaluation and Treatment [CONS] Routine Please Evaluate and Treat. OT Reason for Consult: Strengthening Special Instructions: post op coectomy with colostomy This query below is only for informational purposes and is not editable. Admission Diagnosis/Problem: Wound PT Evaluation and Treatment [CONS] Routine Please Evaluate and Treat. PT Reason for Consult: Strengthening Special Instructions: post op colectomy with colostomy This query below is only for informational purposes and is not editable. Admission Diagnosis/Problem: Wound 04/06/17 14:46 Consult to Plaste[facility] Spot [CONS] Routine Comment: Physician Instructions: Quantity: Reason for Consult: New Ostomy s/p colonresection Recommended Follow-up Testing/Procedures: Recheck albumin in 1-2 weeks at a visit with PCP. Home health to follow for wound care, ostomy care. - Patient Instructions Diet: Heart Healthy Diet (high protein.) Wound/Incision Care: Keep Operative Site/Wound Site Clean and Dry, Change Dressing Daily Notify Provider of: Fever, Increased Pain, Swelling and Redness, Drainage, Nausea and/or Vomiting - Discharge Plan Prescriptions/Med Rec: Dexamethasone 2 mg PO DAILY 7 Days #4 tablet Dexamethasone 4 mg PO DAILY 7 Days #7 tablet Dexamethasone 4 mg PO BID #2 tablet Home Medications: Home Meds Levothyroxine 75 mcg PO DAILY@0600 08/15/14 [History] Metoprolol Succinate [Toprol XL] 12.5 mg PO DAILY 03/27/17 [History] Famotidine [Acid Vmware Administrator] 10 mg PO BID 04/06/17 [History] oxyCODONE HCl/Acetaminophen [oxyCODONE-Acetaminophen 5-325] 1 tab PO Q4H PRN 01/12 [History] Dexamethasone 2 mg PO DAILY 7 Days #4 tablet 04/12/17 [Rx] Dexamethasone 4 mg PO BID #2 tablet 04/12/17 [Rx] Dexamethasone 4 mg PO DAILY 7 Days #7 tablet 04/12/17 [Rx] Docusate Sodium [Colace] 100 mg PO BID PRN cap 04/12/17 [Rx] Patient Handouts: Colostomy, Adult, Care After, Venous Thromboembolism Prevention Forms: Take Home DC Nutrition Plan - Discharge Summary/Plan Comment DC Time >30 min.: Yes - Patient Data Vitals - Most Recent: Last Vital Signs Temp 36.7 C 04/12/17 07:05 Pulse 50 L 04/12/17 08:02 Resp 18 04/12/17 07:05 BP 113/65 04/12/17 08:02 Pulse Ox 98 04/12/17 07:05 Weight - Most Recent: 64.047 kg Lab Results - Last 24 hrs: Laboratory Results - last 24 hr 04/12/17 04/12/17 Range/Units 06:45 06:45 WBC 10.1 (4.5-12.0) X10-3/uL RBC 4.32 (4.30-5.75) x10(6)uL Hgb 11.8 (11.5-15.5) g/dL Hct 36.0 (30.0-51.3) % MCV 83.3 (80-96) fL MCH 27.2 L (27.7-33.6) pg MCHC 32.7 (32.2-35.4) g/dL RDW 14.7 (11.5-15.5) % Plt Count 260 (125-369) X10(3)uL MPV 8.1 (7.4-10.4) fL Add Manual Diff Yes Neutrophils % (Manual) 83 H (46-82) % Lymphocytes % (Manual) 11 L (13-37) % Monocytes % (Manual) 6 (4-12) % Sodium 136 (135-145) mmol/L Potassium 4.3 (3.5-5.3) mmol/L Chloride 101 (100-110) mmol/L Carbon Dioxide 26 (21-32) mmol/L BUN 27 H (7-18) mg/dL Creatinine 0.9 (0.70-1.30) mg/dL Est Cr Clr Drug Dosing 54.21 mL/min Estimated GFR (MDRD) > 60 (>60) BUN/Creatinine Ratio 30.0 H (9-20) Glucose 120 H (80-116) mg/dL Calcium 7.9 L (8.6-10.2) mg/dL Total Bilirubin 0.5 (0.1-1.3) mg/dL AST 13 D (5-25) IU/L ALT 41 H D (12-36) U/L Alkaline Phosphatase 58 (56-112) IU/L Total Protein 5.1 L (6.0-8.0) g/dL Albumin 2.3 L (3.2-4.6) g/dL Globulin 2.8 g/dL Albumin/Globulin Ratio 0.8 Med Orders - Current: Current Medications Artificial Tears (Liquitears 1.4% Ophth Soln) 0 ml EYEBOTH ASDIRECTED PRN PRN Reason: Dry Eyes Benzocaine/Menthol (Cepacol Sore Throat) 1 lozenge MUCMEM ASDIRECTED PRN PRN Reason: Sore Throat Dexamethasone (Dexamethasone) 4 mg PO BID [facility] Stop: 04/13/17 21:01 Last Admin: 04/12/17 08:03 Dose: 4 mg Dexamethasone (Dexamethasone) 4 mg PO DAILY [facility] Stop: 04/21/17 09:01 Dexamethasone (Dexamethasone) 2 mg PO DAILY [facility] Stop: 04/29/17 09:01 Docusate Sodium (Colace) 100 mg PO BID PRN PRN Reason: Constipation [facility] Last Admin: 04/12/17 07:50 Dose: 2.5 mg Famotidine (Pepcid) 10 mg PO BID [facility] Last Admin: 04/12/17 08:03 Dose: 10 mg Guaifenesin (Robitussin) 100 mg PO Q4H PRN PRN Reason: Cough Levothyroxine Sodium (Levothyroxine) 75 mcg PO DAILY@0600 [facility] Last Admin: 04/12/17 05:36 Dose: 75 mcg Methyl Salicylate (Icy Hot Cream) 0 gm TOP BID PRN PRN Reason: Discomfort Metoprolol Succinate (Toprol Xl) 12.5 mg PO DAILY [facility] Last Admin: 04/12/17 08:02 Dose: 12.5 mg Oxycodone/Acetaminophen (Percocet 325-5 Mg) 1 tab PO Q4H PRN PRN Reason: Pain (moderate 4-6) Sodium Chloride ([place] Nasal [place]) 0 ml STACIE BID PRN PRN Reason: Nasal Congestion Zolpidem Tartrate (Ambien) 5 mg PO BEDTIME PRN PRN Reason: Sleep Discontinued Medications Dexamethasone (Dexamethasone) 4 mg PO BID [facility] - Exam General: Reports: Alert, Oriented, Cooperative, No Acute Distress HEENT: Reports: Pupils Equal, Pupils Reactive Neck: Reports: Supple Lungs: Reports: Clear to Auscultation, Normal Respiratory Effort Cardiovascular: Reports: Regular Rate, Regular Rhythm GI/Abdominal Exam: Normal Bowel Sounds, Soft (Wound healing well. ) Extremities: No Pedal Edema *Q Meaningful Use (DIS) - VTE *Q VTE Criteria *Q: - Stroke *Q Stroke Criteria *Q: - AMI *Q AMI Criteria *Q:
[2017-04-14] MEDS ORDERED: Dexamethasone 4 MG Tab PO SCH (09:00)
[2017-04-22] MEDS ORDERED: Dexamethasone 4 MG Tab PO SCH (09:00)
== END 2017-04-12 13:40 | disposition home health service (06) | DRG 948 ==
LOC: FB.MS 13:53
PROVIDERS: ADMIT Family Medicine; ATTEND Family Medicine
DX: R53.1 Weakness (principal); C85.89 Other specified types of non-Hodgkin lymphoma, extranodal and solid organ sites; Z98.890 Other specified postprocedural states; Z48.01 Encounter for change or removal of surgical wound dressing; Z93.3 Colostomy status; Z90.5 Acquired absence of kidney; E03.9 Hypothyroidism, unspecified; Z85.828 Personal history of other malignant neoplasm of skin; Z90.49 Acquired absence of other specified parts of digestive tract; K30 Functional dyspepsia; Z85.528 Personal history of other malignant neoplasm of kidney; I12.9 Hypertensive chronic kidney disease with stage 1 through stage 4 chronic kidney disease, or unspecified chronic kidney disease; N18.9 Chronic kidney disease, unspecified; Z91.018 Allergy to other foods; Z88.8 Allergy status to other drugs, medicaments and biological substances; E78.5 Hyperlipidemia, unspecified; Z86.73 Personal history of transient ischemic attack (TIA), and cerebral infarction without residual deficits; R63.4 Abnormal weight loss
CPT/HCPCS: 36415; 80053; 85025; 97110-GO; 97110-GP; 97116-GP; 97162-GP; 97166-GO; 97530-GO; 97530-GO-KX; 97535-GO; A9270-GY; J8540

== ENCOUNTER 2017-07-30 09:41 | Emergency (ER) | payer MEDICARE, OTHER ==
--- NOTE | 2017-07-30 10:18 | EDM.PDOC ---
ED HPI GENERAL MEDICAL PROBLEM - General Chief Complaint: Laceration Stated Complaint: FELL , WEAK, LACERATION ON BACK OF HEAD Time Seen by Provider: 07/30/17 10:00 Source of Information: Reports: Patient, Family, Old Records History Limitations: Reports: No Limitations - History of Present Illness INITIAL COMMENTS - FREE TEXT/NARRATIVE: Jose Manuel got up this 6 am and lost balance, falling at the side of the bed and striking head onto a cabinet with metalic handles. He lacerated the posterior scalp. There was no LOC. There is some residual pain at the laceration site, and mild abdominal discomfort. His colostomy looks fine. His tetanus vax status is current. Anterior Head Pain Score (Numeric/FACES): 3 - Related Data Allergies Allergy/AdvReac Type Severity Reaction Status Date / Time avocado Allergy Diarrhea Verified 07/30/17 10:06 nifedipine [From Procardia] Allergy Hypertensio Verified 07/30/17 10:06 n Home Meds: Home Meds Levothyroxine 75 mcg PO DAILY@0600 08/15/14 [History] Metoprolol Succinate [Toprol XL] 12.5 mg PO DAILY 03/27/17 [History] Famotidine [Acid Motel Operator] 10 mg PO BID 04/06/17 [History] oxyCODONE HCl/Acetaminophen [oxyCODONE-Acetaminophen 5-325] 1 tab PO Q4H PRN 01/12 [History] Dexamethasone 2 mg PO DAILY 7 Days #4 tablet 04/12/17 [Rx] Dexamethasone 4 mg PO BID #2 tablet 04/12/17 [Rx] Dexamethasone 4 mg PO DAILY 7 Days #7 tablet 04/12/17 [Rx] Docusate Sodium [Colace] 100 mg PO BID PRN cap 04/12/17 [Rx] Past Medical History HEENT History: Reports: Cataract Other HEENT History: Dentures Cardiovascular History: Reports: Hypertension, Other (See Below) Other Cardiovascular History: Diastolic heart murmur Respiratory History: Reports: Intubation, Previous Gastrointestinal History: Reports: Cholelithiasis Other Gastrointestinal History: Colostomy Genitourinary History: Reports: Chronic Renal Insuffiency Other Genitourinary History: Only has 1 kidney is functioning at roughly 45%. No history of needing dialysis her diuretics. 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 Dermatologic History: Reports: None - Infectious Disease History Infectious Disease History: Reports: None - Past Surgical History Head Surgeries/Procedures: Reports: None Cardiovascular Surgical History: Reports: None Respiratory Surgical History: Reports: None GI Surgical History: Reports: Colon, Colostomy Male Surgical History: Reports: Nephrectomy Endocrine Surgical History: Reports: None Neurological Surgical History: Reports: None Musculoskeletal Surgical History: Reports: None Oncologic Surgical History: Reports: Other (See Below) Dermatological Surgical History: Reports: None Social & Family History - Family History Family Medical History: Noncontributory - Tobacco Use Smoking Status *Q: Never Smoker Second Hand Smoke Exposure: No - Caffeine Use Caffeine Use: Reports: Coffee Other Caffeine Use: less than a cup a day - Alcohol Use Days Per Week of Alcohol Use: 0 - Recreational Drug Use Recreational Drug Use: No - Living Situation & Occupation Living situation: Reports: , with Spouse Occupation: Retired (Lives independently in his own home.) ED ROS GENERAL - Review of Systems Review Of Systems: ROS reveals no pertinent complaints other than HPI. ED EXAM, SKIN/RASH Exam: See Below Exam Limited By: No Limitations General Appearance: Alert, WD/WN, Mild Distress Eye Exam: Bilateral Eye: EOMI, Normal Inspection, PERRL Ears: Normal External Exam Nose: Normal Inspection Throat/Mouth: Normal Inspection, Normal Oropharynx, No Airway Compromise Head: Normocephalic, Other (4 cm occipital scalp laceration, no step off, no active bleeding) Neck: Normal Inspection, Non-Tender, Full Range of Motion Respiratory/Chest: Lungs Clear, Normal Breath Sounds, Chest Non-Tender Cardiovascular: Regular Rate, Rhythm, No Murmur GI/Abdominal: Normal Bowel Sounds, Soft, Non-Tender, No Organomegaly, No Distention, No Mass, Other (colostomy site intact LLQ) (Male) Exam: Deferred Rectal (Males) Exam: Deferred Back Exam: Normal Inspection Extremities: Normal Inspection Neurological: Alert, Oriented, CN II-XII Intact, No Motor/Sensory Deficits Psychiatric: Normal Affect, Normal Mood Skin: Warm, Dry, Normal Color, Wound/Incision (4 cm occipital laceration) ED SKIN PROCEDURES - Laceration/Wound Repair Midline Occipital Head Lac/Wound length In cm: 4 Appearance: Linear, Clean Distal NVT: Neuro & Vascular Intact Skin Prep: Chlorhexidine (Hibiciens) Exploration/Debridement/Repair: Wound Explored, No Foreign Material Found Closed with: [place] # of Sutures: 6 Suture Type: Simple Sterile Dressing Applied: None Tetanus Status Addressed: Yes Complications: No Course - Vital Signs Text/Narrative:: Patient tolerated procedure well. Last Recorded V/S: Last Vital Signs Temp 37.3 C 07/30/17 10:07 Pulse 80 07/30/17 10:35 Resp 16 07/30/17 10:35 BP 105/51 L 07/30/17 10:35 Pulse Ox 96 07/30/17 10:35 Departure - Departure Time of Disposition: 10:20 Disposition: Home, Self-Care 01 Condition: Fair Clinical Impression: Occipital scalp laceration Qualifiers: Encounter type: initial encounter Qualified Code(s): S01.01XA - Laceration without foreign body of scalp, initial encounter - Discharge Information Instructions: Head Injury, Adult, Laceration Care, Adult Referrals: Yifan Ruiz MD [Primary Care Provider] - Forms: ED Department Discharge - Problem List & Annotations (1) Occipital scalp laceration SNOMED Code(s): 189915234 Code(s): S01.01XA - LACERATION WITHOUT FOREIGN BODY OF SCALP, INITIAL ENCOUNTER Status: Acute Annotation/Comment:: Routine wound cares, Tylenol for pain if needed. Qualifiers: Encounter type: initial encounter Qualified Code(s): S01.01XA - Laceration without foreign body of scalp, initial encounter - Problem List Review Problem List Initiated/Reviewed/Updated: Yes - Assessment/Plan Plan: Staple removal in 1 week.
[2017-07-30 10:37] VITALS: BP 105/51
== END 2017-07-30 10:31 | disposition home or self-care (01) ==
LOC: FB.ED 09:41
DX: S01.01XA Laceration without foreign body of scalp, initial encounter (principal); I12.9 Hypertensive chronic kidney disease with stage 1 through stage 4 chronic kidney disease, or unspecified chronic kidney disease; N18.9 Chronic kidney disease, unspecified; E03.9 Hypothyroidism, unspecified; Z91.018 Allergy to other foods; Z88.8 Allergy status to other drugs, medicaments and biological substances; Z79.899 Other long term (current) drug therapy; W19.XXXA Unspecified fall, initial encounter; W22.8XXA Striking against or struck by other objects, initial encounter
CPT/HCPCS: 12002; 99282